=== PATIENT | female | born 1965 | race Two or more races ===

== ENCOUNTER → 2024-06-11 | Outpatient (CLI) | payer OTHER, SELFPAY ==
--- NOTE | 2024-06-11 10:53 | XR_ITS ---
EXAMINATION: Ankle, right 3 views . Technique: Ankle AP, oblique, lateral 3 views Date and time of exam: June 11, 2024 11:11 AM INDICATIONS: Injury to the ankle April 02, 2024 ankle pain FINDINGS: No ankle fracture or dislocation No opaque foreign body IMPRESSION: No ankle fracture or dislocation
--- NOTE | 2024-06-11 10:53 | XR_ITS ---
Examination: Foot, right, 3 views Technique: AP, oblique, lateral views foot, 3 views Date and time of exam: June 11, 2024 1111 hours INDICATIONS: Injury to the foot April 02, 2024, followed by foot pain FINDINGS: Moderate osteopenia No acute fracture No dislocation IMPRESSION: No acute fracture
== END | disposition home or self-care (01) ==
PROVIDERS: PCP Specialist; Referring Provider Internal Medicine Infectious Disease; Visit Provider Internal Medicine Infectious Disease
DX: S93.401A Sprain of unspecified ligament of right ankle, initial encounter (principal); S99.921A Unspecified injury of right foot, initial encounter; X58.XXXA Exposure to other specified factors, initial encounter
CPT/HCPCS: 73610; 73630

== ENCOUNTER → 2024-06-24 | Outpatient (CLI) | payer OTHER, BC, SELFPAY ==
--- NOTE | 2024-06-24 16:49 | XR_ITS ---
Examination: Sinus series 4 views TECHNIQUE: Jd Singh lateral submentovertex sinus series 4 views Exam date and time: June 24, 2024 1712 hours INDICATIONS: Sinus pressure and pain dizziness beginning one month ago. FINDINGS: Opacity in the frontal ethmoid air cells Maxillary antra are clear Underdeveloped sphenoid sinuses No deviation of the nasal septum Moderate hypertrophy inferior nasal turbinates Deviation of the nasal septum to the right 2 mm No cortical bone destruction IMPRESSION: Chronic ethmoid frontal sinusitis Normal epiglottis Early degenerative disc disease C5-C6
== END | disposition home or self-care (01) ==
LOC: CDIM 16:45
PROVIDERS: PCP Specialist; Referring Provider Specialist; Visit Provider Specialist
DX: J32.8 Other chronic sinusitis (principal); M50.322 Other cervical disc degeneration at C5-C6 level
CPT/HCPCS: 70220

== ENCOUNTER → 2024-10-28 | Outpatient (CLI) | payer OTHER, SELFPAY ==
--- NOTE | 2024-10-28 17:00 | XR_ITS ---
Examination: Shoulder,left, 3 views Technique: Shoulder AP internal rotation, AP external rotation, Y view shoulder, 3 views Exam date and time :October 28, 2024 1738 hours INDICATION: Left shoulder pain one month. FINDINGS: Moderate osteopenia. Mild to moderate narrowing glenohumeral joint Mild calcific tendinitis. No fracture IMPRESSION: [id number] narrowing glenohumeral joint Mild left shoulder calcific tendinitis
== END | disposition home or self-care (01) ==
LOC: CDIM 16:59
PROVIDERS: PCP Specialist; Referring Provider Specialist; Visit Provider Specialist
DX: M75.32 Calcific tendinitis of left shoulder (principal); M25.812 Other specified joint disorders, left shoulder
CPT/HCPCS: 73030

== ENCOUNTER → 2025-02-18 | Outpatient (CLI) | payer OTHER, BC, SELFPAY ==
[2025-02-18 16:59] LABS: Collection Type, Urine Clean Catch
[2025-02-18 18:01] LABS: Bacteria,Urine 1+; Bilirubin,Urine Negative (Negative); Blood,Urine Negative (Negative); Clarity,Urine Turbid (Clear/Hazy); Color,Urine Yellow (Lt Yel-Yel); Glucose, Urine Negative (Negative); Ketones,Urine Negative (Negative); Leukocyte Esterase,Urine Positive (Negative); Nitrite,Urine Negative (Negative); PH,Urine 6.0 (5.0-7.0); Protein,Urine Negative (Neg - Trace); RBC,Urine 2 /hpf (0-3); Specific Gravity,Urine 1.028 (1.001-1.035); Squamous Epithelial Cell,Urine 21 /hpf (0-5); Urobilinogen,Urine Negative mg/dL (0.0-1.0); WBC,Urine 13 /hpf (0-5)
== END | disposition home or self-care (01) ==
PROVIDERS: PCP Specialist; Referring Provider Specialist; Visit Provider Specialist
DX: N39.0 Urinary tract infection, site not specified (principal)
CPT/HCPCS: 81001; 87086

== ENCOUNTER → 2025-02-25 | Outpatient (CLI) | payer OTHER, BC, SELFPAY ==
[2025-02-25 16:57] LABS: Collection Type, Urine Clean Catch
[2025-02-25 17:52] LABS: Bilirubin,Urine Negative (Negative); Blood,Urine Trace (Negative); Clarity,Urine Clear (Clear/Hazy); Color,Urine Lt-Yellow (Lt Yel-Yel); Glucose, Urine Negative (Negative); Ketones,Urine Negative (Negative); Leukocyte Esterase,Urine Negative (Negative); Nitrite,Urine Negative (Negative); PH,Urine 5.5 (5.0-7.0); Protein,Urine Negative (Neg - Trace); RBC,Urine 1 /hpf (0-3); Specific Gravity,Urine 1.009 (1.001-1.035); Squamous Epithelial Cell,Urine 1 /hpf (0-5); Urobilinogen,Urine Negative mg/dL (0.0-1.0); WBC,Urine 1 /hpf (0-5)
== END | disposition home or self-care (01) ==
LOC: SLDO 16:51
PROVIDERS: PCP Specialist; Referring Provider Specialist; Visit Provider Specialist
DX: N39.0 Urinary tract infection, site not specified (principal)
CPT/HCPCS: 81001; 87086